=== PATIENT | female | born 1960 | race Caucasian/White ===

== ENCOUNTER 2016-06-15 05:25 | Emergency (ER) | payer OTHER ==
[~2016-06-15] VITALS: Ht 170.2 cm; Wt 92.5 kg
[2016-06-15 05:34] VITALS: BP 122/72
--- NOTE | 2016-06-15 05:46 | NUR ---
PT TAKEN TO BED 3
--- NOTE | 2016-06-15 05:50 | NUR ---
PATIENT PRESENTS TO ED WITH RIGHT WRIST PAIN AND SWELLING, ABRASION TO RIGHT KNEE AND RIGHT SHOULDER PAIN WHILE AT WORK AT [employer] . PT STATES SHE SLIPPED AND FELL AND BRACED HERSELF WITH HER RIGHT HAND.PT DENIES N/V/D; SKIN IS PINK/WARM/DRY; AAOX4 WITH EVEN AND STEADY GAIT; LUNGS CLEAR BL; HR EVEN AND REGULAR; PT DENIES ANY FEVER, CP, SOB, OR COUGH AT THIS TIME; PATIENT STATES PAIN OF 7/10 AT THIS TIME; VSS; PATIENT POSITIONED FOR COMFORT; HOB ELEVATED; BEDRAILS UP X2; BED DOWN. ER MD MADE AWARE OF PT STATUS.
--- NOTE | 2016-06-15 06:09 | NUR ---
Dr. Wisdom evaluating patient at bedside.
[2016-06-15] MEDS ORDERED: KETOROLAC 30 MG/ML VIAL IM ONE (06:15)
--- NOTE | 2016-06-15 06:39 | NUR ---
X-Ray at bedside.
--- NOTE | 2016-06-15 07:06 | NUR ---
Pt report given to JOSÉ ELDRIDGE. Transfer of care at this time.
--- NOTE | 2016-06-15 07:50 | NUR ---
DR FU ASSESSING AAO PT AT BEDSIDE
[2016-06-15 08:23] VITALS: BP 121/79
== END 2016-06-15 08:23 | disposition home or self-care (01) ==
LOC: MED 05:25
DX: M25.531 Pain in right wrist (principal); M25.511 Pain in right shoulder; M25.561 Pain in right knee; Z88.0 Allergy status to penicillin
CPT/HCPCS: 29125; 73020; 73110; 73562; 96372; 99284; J1885; Q0092

== ENCOUNTER 2016-07-10 17:33 | Emergency (ER) | payer OTHER ==
[~2016-07-10] VITALS: Ht 170.2 cm; Wt 86.2 kg
[2016-07-10 17:36] VITALS: BP 139/87
--- NOTE | 2016-07-10 19:42 | NUR ---
PT TO OF3
--- NOTE | 2016-07-10 19:43 | NUR ---
Patient being evaluated by physician.
[2016-07-10] MEDS ORDERED: HYDROcodone/APAP 5/325 MG 1 TAB TAB PO ONE (19:50)
--- NOTE | 2016-07-10 19:59 | NUR ---
PT TAKEN FOR X-RAY
--- NOTE | 2016-07-10 20:10 | NUR ---
56Y/F PATIENT PRESENTS TO ED WITH BACK PAIN X3 DAYS . PT STATES PAIN STARTED 3 DAYS AGO WITH NO TRAUMA . DENIES N/V/D; SKIN IS PINK/WARM/DRY; AAOX4 WITH EVEN AND STEADY GAIT; LUNGS CLEAR BL; HR EVEN AND REGULAR; PT DENIES ANY FEVER, CP, SOB, OR COUGH AT THIS TIME; PATIENT STATES PAIN OF 7/10 AT THIS TIME; VSS;BED DOWN. ER MD MADE AWARE OF PT STATUS.
--- NOTE | 2016-07-10 21:05 | NUR ---
Patient discharged with v/s stable. Written and verbal after care instructions given and explained. Patient alert, oriented and verbalized understanding of instructions. Ambulatory with steady gait. All questions addressed prior to discharge. ID band removed. Patient advised to follow up with PMD. Rx of NORCO 5/325 MG, ROBAXIN 500 MG given. Patient educated on indication of medication including possible reaction and side effects. Opportunity to ask questions provided and answered.
[2016-07-10 21:22] VITALS: BP 130/78
== END 2016-07-10 21:05 | disposition home or self-care (01) ==
LOC: MED 17:33
DX: S39.012A Strain of muscle, fascia and tendon of lower back, initial encounter (principal); Z88.0 Allergy status to penicillin; X50.9XXA Other and unspecified overexertion or strenuous movements or postures, initial encounter; Y93.89 Activity, other specified; Y92.89 Other specified places as the place of occurrence of the external cause; Y99.8 Other external cause status
CPT/HCPCS: 72110; 81002; 81025; 99284

== ENCOUNTER 2017-10-04 20:25 | Emergency (ER) | payer OTHER ==
[~2017-10-04] VITALS: Ht 170.2 cm; Wt 83.9 kg
[2017-10-04 20:29] VITALS: BP 122/67
--- NOTE | 2017-10-04 20:31 | NUR ---
TO BED # 9 AMBULATORY , REPORT GIVEN TO ANIA ELDRIDGE.
--- NOTE | 2017-10-04 20:35 | NUR ---
PATIENT PRESENTS TO ED WITH SOB X1 DAY. PATIENT STATES SHE HAS "HAD A HARD TIME BREATHING AND NEEDING TO TAKE DEEP BREATHS SINCE THIS AFTERNOON" PATIENT STATES HER SOB OCCURED AT REST. PATIENT STATES SHE FELT DIZZY DURING DINNER BUT DENIES ANY LOSS OF CONSCIOUSNESS. PATIENTS O2 SATURATION 99% ON ROOM AIR. PATIENTS BREATHING IS EVEN AND UNLABORED AT THIS TIME. PT DENIES N/V/D; SKIN IS PINK/WARM/DRY; AAOX4 WITH EVEN AND STEADY GAIT; LUNGS CLEAR BL; HR EVEN AND REGULAR; PT DENIES ANY FEVER, CP, OR COUGH AT THIS TIME; PATIENT STATES PAIN OF 0/10 AT THIS TIME; VSS; PATIENT POSITIONED FOR COMFORT; HOB ELEVATED; BEDRAILS UP X1; BED DOWN. ER MD MADE AWARE OF PT STATUS.
--- NOTE | 2017-10-04 21:29 | NUR ---
Dr. Islas evaluating patient at bedside.
[2017-10-04] MEDS ORDERED: predniSONE 20 MG TAB PO ONE (21:35)
[2017-10-04] MEDS ORDERED: ALBUTEROL SULFATE/IPRATROPIU 3 ML SOL IH ONE (21:35)
[2017-10-04] MEDS ORDERED: ALBUTEROL 0.083% 2.5 MG/3 ML NEBU INH ONE (21:35)
--- NOTE | 2017-10-04 21:44 | NUR ---
RT AT BEDSIDE
--- NOTE | 2017-10-04 22:45 | NUR ---
Patient discharged with v/s stable. Written and verbal after care instructions given and explained. Patient alert, oriented and verbalized understanding of instructions. Ambulatory with steady gait. All questions addressed prior to discharge. ID band removed. Patient advised to follow up with PMD. Rx of PREDNISONE, ALBUTEROL given. Patient educated on indication of medication including possible reaction and side effects. Opportunity to ask questions provided and answered.
[2017-10-04 22:49] VITALS: BP 122/67
== END 2017-10-04 22:45 | disposition home or self-care (01) ==
LOC: MED 20:25
DX: R06.02 Shortness of breath (principal); E11.9 Type 2 diabetes mellitus without complications; Z88.0 Allergy status to penicillin
CPT/HCPCS: 82948; 94640; 99283; J7512; J7613; J7620

== ENCOUNTER 2017-12-06 03:38 | Emergency (ER) | payer OTHER ==
[~2017-12-06] VITALS: Ht 170.2 cm; Wt 81.6 kg
[2017-12-06 03:49] VITALS: BP 123/69
--- NOTE | 2017-12-06 03:54 | NUR ---
PT AMBULATED TO LOBBY WITH VSS
--- NOTE | 2017-12-06 04:29 | NUR ---
PT TO ER BED 4
--- NOTE | 2017-12-06 04:31 | NUR ---
57 Y/O F PRESENTS TO THE ED W/C/O R KNEE PAIN, S/P FALL AT WORK EARLIER TODAY. BRUISE NOTED TO R KNEE. PT DENIES N/V/D; SKIN IS INTACT, PINK/WARM/DRY; AAOX4, PERRL, WITH EVEN AND STEADY GAIT; LUNGS CLEAR BL, BREATHING UNLABORED; HR EVEN AND REGULAR, BL PERIPHERAL PULSES PRESENT; BS ACTIVE X4, NO TENDERNESS TO PALPATION, NO HEPATOSPLENOMEGALLY PALPATED, RESONANT TO PERCUSSION; PT DENIES ANY FEVER, CP, SOB, OR COUGH AT THIS TIME; PT STATES 10/10 PAIN AT THIS TIME; VSS; PATIENT POSITIONED FOR COMFORT; HOB ELEVATED; BEDRAILS UP X2; BED DOWN. ER MADE MADE AWARE
[2017-12-06 06:24] VITALS: BP 129/88
--- NOTE | 2017-12-06 06:24 | NUR ---
Patient discharged with v/s stable. Written and verbal after care instructions given and explained. Patient alert, oriented and verbalized understanding of instructions. Ambulatory with steady gait. All questions addressed prior to discharge. ID band removed. Patient advised to follow up with PMD. Rx of [place] given. Patient educated on indication of medication including possible reaction and side effects. Opportunity to ask questions provided and answered.
== END 2017-12-06 06:24 | disposition home or self-care (01) ==
LOC: MED 03:38
DX: S80.01XA Contusion of right knee, initial encounter (principal); E11.9 Type 2 diabetes mellitus without complications; Z88.0 Allergy status to penicillin; W01.0XXA Fall on same level from slipping, tripping and stumbling without subsequent striking against object, initial encounter; Y93.89 Activity, other specified; Y92.89 Other specified places as the place of occurrence of the external cause; Y99.8 Other external cause status
CPT/HCPCS: 73562; 99284; Q0092

== ENCOUNTER 2018-06-30 23:27 | Emergency (ER) | payer OTHER ==
[~2018-06-30] VITALS: Ht 170.2 cm; Wt 81.6 kg
[2018-06-30 23:30] VITALS: BP 130/72
--- NOTE | 2018-06-30 23:33 | NUR ---
TO LOBBY A/W BED, ELISSA FRITZ NOTED
--- NOTE | 2018-06-30 23:44 | NUR ---
PT AMBULATED TO ER BED 12
--- NOTE | 2018-07-01 00:19 | NUR ---
Pt presents to ED with complaints of unhealed abscess x1 year to left posterior thigh. Pt states she had an I&D approximately 1 year ago that never healed. Wound is dry, no drainage noted. Surrounding erythema noted. Afebrile. Pt states she got an x-ray from her PMD that she never went to. AOX4, clear speech. VSS.
[2018-07-01] MEDS ORDERED: BACITRACIN OINT 500 UNITS/GM PKT TP ONE (00:26)
[2018-07-01 00:34] VITALS: BP 130/72
--- NOTE | 2018-07-01 00:34 | NUR ---
Patient discharged with v/s stable. Written and verbal after care instructions given and explained. Patient alert, oriented and verbalized understanding of instructions. Ambulatory with steady gait. All questions addressed prior to discharge. ID band removed. Patient advised to follow up with PMD. Rx of Motrin 800mg, Bactrim DS, Mupirocin 2% topical cream given. Patient educated on indication of medication including possible reaction and side effects. Opportunity to ask questions provided and answered.
== END 2018-07-01 00:34 | disposition home or self-care (01) ==
LOC: MED 23:27
DX: L03.116 Cellulitis of left lower limb (principal); E11.9 Type 2 diabetes mellitus without complications; Z88.0 Allergy status to penicillin
CPT/HCPCS: 99283